=== PATIENT | male | born 1930 | race African-American/Black ===

== ENCOUNTER → 2016-08-15 | Outpatient (CLI) | payer OTHER ==
[~2016-08-15] MED LIST: ALLOPURINOL 10100 M1 PO; AMARYL4 MG PO; ASPIR 8181 MG PO; CEFTIN 250 MG250 MG PO; CELEXA10 MG PO; COLACE100 MG; COREG3.125 MG PO; HYDRALAZINE 2525 M1 PO; IMDUR 30 MG TAB30 M1 PO; IRON PO; IRON325 PO; LASIX 40 MG TAB40 M1 PO; LIPITOR20 MG PO; LYRICA25 MG PO; NORVASC5 MG PO; PRILOSEC20 MG PO; SYNTHROID50 MCG PO; TOPROL XL50 MG PO
== END ==
LOC: NUC 09:39
DX: I25.10 Atherosclerotic heart disease of native coronary artery without angina pectoris (principal)

== ENCOUNTER 2017-10-23 12:18 | Inpatient (IN) | payer OTHER ==
[~2017-10-23] VITALS: Ht 177.8 cm; Wt 86.2 kg
--- NOTE | ~2017-10-23 | HC ---
[facility] [place] [address] CONSULTATION Name: JENNY OTTO Room #: 354-P [facility] M.R.#: [id number] Admission: 10/23/17 Attend Phys: Shayne Bowles MD Discharge: Date of : 32 Report #: [id number] THIS REPORT FOR: //name// CC: Shayne Amaral REASON FOR CONSULTATION: Left distal radius fracture. HISTORY OF PRESENT ILLNESS: The patient is an 87-year-old right hand dominant male who apparently fell while in the bathroom at a restaurant. He apparently was walking over to wash his hands and then fell backwards. He then went home, complained of left wrist pain and he was brought to the emergency department. He denies loss of consciousness. REVIEW OF SYSTEMS: NEUROLOGIC: Denies numbness or tingling in his extremities. MUSCULOSKELETAL: Denies any other extremity complaints. PAST MEDICAL HISTORY: Significant for congestive heart failure, hyperkalemia, his reports a history of strokes, history of UTIs, hypothyroidism, hypertension, hyperlipidemia, chronic renal failure, and history of pacemaker. PAST SURGICAL HISTORY: Pacemaker placement, thyroidectomy, and appendectomy. ALLERGIES: LEVOFLOXACIN. HOME MEDICATIONS: Include omeprazole, glimepiride, levothyroxine, allopurinol, atorvastatin, citalopram, pregabalin, docusate sodium, aspirin, ferrous sulfate, isosorbide mononitrate, hydralazine, and torsemide. SOCIAL HISTORY: He is right hand dominate, uses a cane for ambulation. His significant other is at his bedside. She reports they live together in a house. He denies smoking or drinking alcohol. LABORATORY STUDIES: Done on 10/24/2017, show white blood cell count 12.7, hemoglobin 11.6, hematocrit 35.2, and platelet count 120. Chemistry is grossly normal except for an elevated creatinine at 2.9. RADIOGRAPHS: AP, lateral and oblique of the left wrist show a distal radius fracture with reasonable alignment. PHYSICAL EXAMINATION: GENERAL: He is awake. He is somewhat sleepy and his significant other reports he just received some pain medicine. He is oriented only to person. VITAL SIGNS: Most recent vital signs show temperature 37.9, heart rate 65, respiration rate 16, blood pressure 126/63, and pulse oximetry is 94% on room air. [address] [address] CONSULTATION Name: JENNY OTTO Room #: 354-P [facility] M.R.#: [id number] Admission: 10/23/17 Attend Phys: Shayne Bowles MD Discharge: Date of : 32 Report #: [id number] EXTREMITIES: Examination of bilateral lower extremities, he is neurovascularly intact. Brisk capillary refill. Sensation is intact to light touch. He wiggles his toes. There is no tenderness to palpation throughout the entire bilateral lower extremities. He has no pain with range of motion of bilateral hips, knees, ankles or feet. Right upper extremity exam, sensation is intact to light touch throughout. He makes a fist, full extension. Skin is clean, dry and intact. There is no pain with range of motion of the entire right upper extremity. Left upper extremity is in a sugar-tong splint. He has moderate amount of edema to his digits, he moves them slowly. However, he is neurovascularly intact. No pain with left shoulder range of motion. ASSESSMENT AND PLAN: Left distal radius fracture in acceptable alignment in a right hand dominant 87-year-old male, he is splinted in a sugar-tong splint. At this point, I would recommend that he follows up as an outpatient with me in my office and we will transition him into a cast. Questions were encouraged and answered to best of my ability. Please have the patient follow up in my office upon discharge. By: [id number] Ashlee Campos MD /nt
--- NOTE | ~2017-10-23 | EKG ---
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: CAROL : 1930 Requested By: Anjel Elmore Order Number: [id number] MD: Rj Lovelace Measurements Intervals [place] Rate: 65 P: 0 FL: 56 QRS: -81 QRSD: 186 T: 106 QT: 489 QTc: 509 Interpretive Statements Ventricular-paced rhythm No further analysis attempted due to paced rhythm Compared to ECG 07/24/2014 15:41:46 Sinus rhythm no longer present Electronically Signed On 10-23-2017 17:08:11 CDT by Rj Lovelace [email or web address] <ELECTRONICALLY SIGNED> By: Rj Lovelace MD, [facility] 10/23/17 1708 1315 1315 Rj Lovelace MD, [facility] /EPI
[2017-10-23 12:21] VITALS: BP 114/47
[2017-10-23] MEDS ORDERED: DEMADEX20 MG PO (12:41)
[2017-10-23 13:53] LABS: HEMATOCRIT 36.4 % (42.0-52.0); HEMOGLOBIN 11.9 gm/dL (14.0-18.0); MCH 30.8 pg (26.0-34.0); MCHC 32.6 g/dL (28.0-37.0); MCV 94.6 fL (80.0-100.0); RBC 3.85 mil/uL (4.50-6.00); RDW 16.1 % (10.5-14.5); WBC 7.6 thou/uL (4.0-11.0)
[2017-10-23 14:06] LABS: URINE BILIRUBIN NEGATIVE (Negative); URINE BLOOD NEGATIVE (Negative); URINE CLARITY CLEAR; URINE COLOR YELLOW; URINE GLUCOSE-RANDOM* NEGATIVE (Negative); URINE KETONES NEGATIVE (Negative); URINE LEUKOCYTES-REFLEX 1+ (Negative); URINE NITRITE-REFLEX POSITIVE (Negative); URINE PROTEIN (DIPSTICK) NEGATIVE (Negative); URINE UROBILINOGEN 0.2 E.U./dl (0.2-1.0)
[2017-10-23 14:16] LABS: BACTERIA-REFLEX >30 Many /HPF (None Seen); CASTS None Seen /LPF (None Seen); CRYSTALS None Seen /LPF (None Seen); SQUAMOUS None Seen /LPF (0-3); URINE RBC 0-2 Rare /HPF (0-2); URINE WBC-REFLEX 6-15 Few /HPF (0-5)
[2017-10-23 14:17] LABS: ABSOLUTE NEUTROPHILS 6.9 thou/uL (1.4-8.2); PLATELET COUNT 98 thou/uL (150-400)
[2017-10-23 14:18] LABS: LARGE PLATELETS RARE
[2017-10-23 14:34] LABS: CREATININE 3.3 mg/dL (0.7-1.3); POTASSIUM 5.5 mmol/L (3.5-5.1); TROPONIN-I 0.15 ng/mL (<0.06)
[2017-10-23 15:26] VITALS: BP 138/63
[2017-10-23 16:00] VITALS: BP 130/76
[2017-10-23 16:34] VITALS: BP 147/69
[2017-10-23 19:52] VITALS: BP 143/69
[2017-10-23 23:40] VITALS: BP 126/60
[2017-10-24 01:18] VITALS: BP 126/60
[2017-10-24 03:47] VITALS: BP 126/63
[2017-10-24 03:49] VITALS: BP 126/63
[2017-10-24 05:44] LABS: HEMATOCRIT 35.2 % (42.0-52.0); HEMOGLOBIN 11.6 gm/dL (14.0-18.0); MCH 30.7 pg (26.0-34.0); RBC 3.79 mil/uL (4.50-6.00); RDW 15.3 % (10.5-14.5); WBC 4.7 thou/uL (4.0-11.0)
[2017-10-24 05:54] LABS: CALCIUM 8.5 mg/dL (8.5-10.1); CREATININE 2.9 mg/dL (0.7-1.3); POTASSIUM 5.1 mmol/L (3.5-5.1)
[2017-10-24 07:59] VITALS: BP 120/54
[2017-10-24 16:04] VITALS: BP 142/74
[2017-10-24 19:24] VITALS: BP 148/70
[2017-10-25 04:00] VITALS: BP 121/64
[2017-10-25 05:52] LABS: CHOLESTEROL 99 mg/dL (<200); HDL CHOLESTEROL 55 mg/dL (>40); LDL CHOLESTEROL 36 mg/dL (<100); MAGNESIUM 2.1 mg/dL (1.8-2.4); TC:HDL 1.8 Ratio (Not establshd); TRIGLYCERIDE 42 mg/dL (<150); VLDL 8 mg/dL (<40)
[2017-10-25 05:55] LABS: SERUM ASSESSMENT Clear
[2017-10-25 08:08] VITALS: BP 134/63
[2017-10-25] MEDS ORDERED: VITAL-D RX TAB1 EACH PO (09:53)
[2017-10-25 16:31] VITALS: BP 108/56
== END 2017-10-25 16:45 | DRG 542 ==
LOC: ER 12:18 → 3W 14:39 → EROBS 14:39 → 3W 16:02
PROVIDERS: Emergency Medicine; Hospitalist; Nurse Practitioner Family
PROC: 2W3FX1Z Immobilization of Left Hand using Splint (ICD-10-PCS; principal; 2017-10-23)
DX: M80.032A Age-related osteoporosis with current pathological fracture, left forearm, initial encounter for fracture (principal); E43 Unspecified severe protein-calorie malnutrition; N39.0 Urinary tract infection, site not specified; N17.9 Acute kidney failure, unspecified; I13.0 Hypertensive heart and chronic kidney disease with heart failure and stage 1 through stage 4 chronic kidney disease, or unspecified chronic kidney disease; E03.9 Hypothyroidism, unspecified; E78.5 Hyperlipidemia, unspecified; I25.5 Ischemic cardiomyopathy; I25.10 Atherosclerotic heart disease of native coronary artery without angina pectoris; N18.9 Chronic kidney disease, unspecified; E87.5 Hyperkalemia; I50.9 Heart failure, unspecified; R27.0 Ataxia, unspecified; M48.061 Spinal stenosis, lumbar region without neurogenic claudication; E11.22 Type 2 diabetes mellitus with diabetic chronic kidney disease; D50.9 Iron deficiency anemia, unspecified; M62.84 Sarcopenia; Z86.73 Personal history of transient ischemic attack (TIA), and cerebral infarction without residual deficits; Z90.49 Acquired absence of other specified parts of digestive tract; Z95.5 Presence of coronary angioplasty implant and graft; Z95.0 Presence of cardiac pacemaker; Z88.1 Allergy status to other antibiotic agents; Z47.89 Encounter for other orthopedic aftercare; W18.39XA Other fall on same level, initial encounter; Y93.89 Activity, other specified; Y92.89 Other specified places as the place of occurrence of the external cause; Y99.8 Other external cause status; Z68.27 Body mass index [BMI] 27.0-27.9, adult
CPT/HCPCS: 10879

== ENCOUNTER → 2017-11-22 | Outpatient (CLI) | payer OTHER ==
[~2017-11-22] VITALS: Ht 175.3 cm; Wt 89.1 kg
[~2017-11-22] MED LIST changes: +DEMADEX20 MG PO; +HYDRALAZINE 2525 MG PO; +METAMUCIL SUGA283 GM PO; +MIRALAX17 GM PO; +PERCOCET PO; +TYLENOL EXTRA500 MG PO; +VITAL-D RX TAB1 EACH PO
--- NOTE | ~2017-11-22 | HPC ---
[facility] [address] [place] [address] PAIN MANAGEMENT CONSULTATION Name: CLARITAJENNY NAHOMI Room #: REG CLMiguel Carias.#: [id number] Admission: 11/22/17 Attend Phys: Nahomi Altamirano DO Discharge: Date of : 32 Report #: [id number] THIS REPORT FOR: //name// CC: Hakan Mishra DO DATE OF SERVICE: 11/22/2017 CHIEF COMPLAINT: Low back pain, bilateral lower extremity pain. HISTORY OF PRESENT ILLNESS: As you know, the patient is an 87-year-old male who recently sustained a fall that led to exacerbation of low back pain. During this fall, he fractured his wrist which is also causing ongoing pain issues. Apparently, he hit his head fairly hard and family feels that he may have suffered a small concussion. The patient has been evaluated by the [facility] and his primary care physician, Dr. Mishra, who sent the patient to our clinic to trial epidural injection to address lumbar radicular pain secondary to a suspected spinal stenosis. The patient indicates today pain is intermittent, describes the pain as throbbing, places current pain score 6/10, daily average at 6/10, worst pain has been is 8/10. The patient states that walking or any type of activity exacerbates symptoms. Heat and cold compresses, pain medications tend to improve pain. He has been referred to our service to discuss treatment options for lumbar radicular symptoms secondary to severe spinal stenosis of lumbar spine. PAST MEDICAL HISTORY: 1. Diabetes mellitus type 2. 2. Chronic anemia. 3. Hypertension. 4. Coronary artery disease. 5. Thyroid disease. 6. History of transient ischemic attacks and cerebrovascular accidents with possible residual deficits. PAST SURGICAL HISTORY: Appendectomy. SOCIAL HISTORY: The patient denies tobacco, alcohol, IV or illicit drug use. He is retired, retired years ago. He is not receiving workmen's compensation nor is trying to obtain disability benefits. He is accompanied by a family member today. ALLERGIES: LEVOFLOXACIN. CURRENT MEDICATIONS: Omeprazole 20 mg once a day, glimepiride 4 mg once a day, levothyroxine 50 mcg per day, allopurinol 100 mg once a day, atorvastatin [address] [address] PAIN MANAGEMENT CONSULTATION Name: JENNY OTTO Room #: REG [facility] M.R.#: [id number] Admission: 11/22/17 Attend Phys: Nahomi Altamirano DO Discharge: Date of : 32 Report #: [id number] once a day, citalopram 10 mg per day, isosorbide dinitrate 30 mg once a day, hydralazine 25 mg per day, docusate sodium 100 mg per day, aspirin 81 mg per day, ferrous sulfate 325 mg per day, albuterol 2 puffs q.4 hours p.r.n., torsemide 20 mg per day, oxycodone 5 mg every 8 hours p.r.n. for pain, Metamucil p.r.n., MiraLax 17 grams per day, Tylenol Extra Strength 500 mg 3 times a day, Lyrica 25 mg p.o. at bedtime, metolazone 2.5 mg once a day. REVIEW OF SYSTEMS: Positive for decrease in appetite, fatigue and weakness, wearing corrective eyewear, glaucoma, hearing loss with tinnitus, shortness of breath with walking or lying flat, urinary tract infections that are recurrent, nocturia, change of force or stream urination, incontinence and dribbling to urine, nervousness, confusion, memory loss, thyroid disease, non-insulin dependent diabetes, excessive thirst, urination, anemia. All other review of systems negative per 12-point review of systems other than those listed in history of present illness. Pain impact score 36/70 indicating moderate interference of daily activities secondary to pain. 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 No rheumatoid arthritis. Pain intensity is 6/10. He indicates pain is distributed equally down the legs. He is a fall risk. He has had a fall in the last 3 months. He is on no blood thinners. He is treated for hypertension. He has not been on opioids for greater than 6 weeks. He has a low opioid assessment risk for opioid abuse. Functional assessment pain impact 32/70. PHYSICAL EXAMINATION: VITAL SIGNS: Blood pressure 138/65, pulse 65, respiratory rate 16 and unlabored. The patient is 99% on room air. Height 5 feet 9 inch tall, weight 196 pounds, BMI calculated 29.0. GENERAL: Well-developed, well-nourished, well-hydrated 87-year-old male appearing his stated age, placing current pain score 6/10. HEENT: Normocephalic, atraumatic. Pupils equal, round, reactive to light. Arcus senilis noted. NEUROLOGIC: Speech is fluent for patient. He is oriented only to person and place. LUNGS: Clear. No wheeze, rhonchi or rales. CARDIOVASCULAR: Regular. No appreciable gallop or rub. ABDOMEN: Soft, nontender, nondistended. EXTREMITIES: Show no clubbing, no cyanosis. There is a cast on the left forearm, status post fracture. MUSCULOSKELETAL: Seated straight leg raising negative. Supine straight leg raising mildly positive. MARCELLUS test negative. Modified Gaenslen's positive for axial back pain. Ankle clonus negative. Babinski is negative. Gait is extremely antalgic. Stance is forward flexed lumbar spine, loss of lordotic [facility] [address] [place] [address] PAIN MANAGEMENT CONSULTATION Name: JENNY OTTO Room #: REG JASMYN Davison#: [id number] Admission: 11/22/17 Attend Phys: Nahomi Altamirano DO Discharge: Date of : 32 Report #: [id number] curvature. ASSESSMENT: 1. Lumbar radiculopathy. 2. Severe spinal stenosis of lumbar spine. 3. Displacement of lumbar intervertebral disk with radiculopathy. 4. Lumbosacral spondylosis with radiculopathy. 5. Facet arthropathy of the lumbar spine. 6. Lumbar degeneration. 7. Chronic intractable pain. PLAN: 1. The patient has been referred to our service by his physician, Dr. Mishra, for evaluation for possible lumbar radiculopathy. The patient sustained a fall recently, which exacerbated his low back symptoms. Nothing in the MRI would indicate any new changes. He has severe spinal stenosis and this is the likely source of the patient's pain given the bilateral nature of his symptoms. The patient and I had a long discussion today about the treatment options available for lumbar radiculopathy secondary to spinal stenosis. The following was discussed with the patient for treatment options: The patient was advised the treatments could include physical therapy, stretching exercise, core strengthening along with some traction techniques. We discussed adjunctive therapies with chiropractic manipulation, myofascial release and acupuncture therapy. We discussed medication management with neuropathic pain medications and low dose opioid for pain control, though I would recommend these to be used sparingly given his cognition issues present and him being such a high fall risk. We discussed the requested epidural injections under fluoroscopic guidance and surgical options. After reviewing risks and benefits of all proposed treatment options, the patient chose to begin with an epidural injection. The patient was advised that third democrat payer restrictions require that authorization be obtained before he could undergo an epidural injection. Authorization could take anywhere from 4-7 working days, will begin the process immediately, have the patient return to undergo the epidural injection once this authorization has been received. 2. We will have the patient back in followup visit once we have received authorization to undergo epidural injection under fluoroscopic guidance. We will set the appointment once the authorization has been achieved so that the patient can return immediately and have that injection done as quickly as possible to address ongoing pain issues. 3. We wish to thank Dr. Mishra and/or for the referral of the patient to our clinic. We will keep you apprised of his response to treatment as we address [address] [address] PAIN MANAGEMENT CONSULTATION Name: JENNY OTTO Room #: REG CLMiguel Davison#: [id number] Admission: 11/22/17 Attend Phys: Nahomi Altamirano DO Discharge: Date of : 32 Report #: [id number] his lumbar radicular symptoms. Again, we wish to thank you for the opportunity to see the patient in consultation. By: [id number] Nahomi Altamirano DO /nt
[2017-11-22 14:03] VITALS: BP 138/65
== END ==
LOC: PAIN 07:06
DX: M47.27 Other spondylosis with radiculopathy, lumbosacral region (principal); M51.16 Intervertebral disc disorders with radiculopathy, lumbar region; M48.061 Spinal stenosis, lumbar region without neurogenic claudication; G89.4 Chronic pain syndrome; M12.88 Other specific arthropathies, not elsewhere classified, other specified site

== ENCOUNTER 2018-02-06 15:52 | Observation (INO) | payer OTHER ==
[~2018-02-06] VITALS: Ht 175.3 cm; Wt 87.7 kg
--- NOTE | ~2018-02-06 | P ---
[facility] [place] [address] PROCEDURE REPORT Name: JENNY OTTO Room #: 201-P [facility] Chris Davison#: [id number] Admission: 02/06/18 Attend Phys: Pedro Morales MD Discharge: 02/07/18 Date of : 32 Report #: [id number] THIS REPORT FOR: //name// CC: Hakan Morales DATE OF SERVICE: 02/07/2018 PREOPERATIVE DIAGNOSIS: Pacemaker is at end of service. POSTOPERATIVE DIAGNOSIS: Pacemaker is at end of service. HISTORY: The patient is an 87-year-old with history of coronary artery disease, complete heart block, status post prior Medtronic pacemaker placed. The patient has been lost to follow up and has not been transmitting his device as scheduled. We were able to get a hold of him yesterday and his device was at end of service. He was admitted for monitoring in the CCU and is here for generator exchange today. Also, has chronic renal insufficiency. He had some hyperkalemia, which resolved with Kayexalate. He is here for generator exchange. ANESTHESIA: The patient underwent MAC anesthesia with no anesthesia related complications. DESCRIPTION OF PROCEDURE: The patient and his significant other underwent informed consent. We discussed the details of the procedure including the risks, which include but not limited to bleeding, infection and need for possible lead revisions. He and his significant other agreed and were willing to proceed. The patient was brought to the EP laboratory in a fasting and sedated state and prepped and draped in a sterile fashion. He received IV vancomycin given his chronic renal insufficiency and diabetes and was prepped and draped in a sterile fashion. I then injected lidocaine at the prior incision site. Incision was made and the pocket was entered. The device was removed from the pocket and he was found to have no underlying heart rhythm. We then connected the RV lead to the pacing wires and then transitioned over to the new pacemaker. The atrial and ventricular leads were connected to the new pacemaker, tested and found to be functioning normally. I did then place an antibiotic pouch into the pocket, given his high risk for infection given chronic renal insufficiency, diabetes and recurrent urinary tract infections. He was given an MRI compatible pacemaker given his history of severe spinal stenosis and neurologic disease in the form of advancing dementia. The pocket was irrigated with vancomycin and I closed the pocket in 2 layers using 2-0 for the deep layer and 3-0 for the middle layer. Surgical glue was placed to the outer skin layer. The patient awoke neurologically and hemodynamically intact, no complications and no [address] [address] PROCEDURE REPORT Name: JENNY OTTO Room #: 201-P [facility] Chris Davison#: [id number] Admission: 02/06/18 Attend Phys: Pedro Morales MD Discharge: 02/07/18 Date of : 32 Report #: [id number] significant bleeding. The explanted pacemaker was a [employer] serial #[id number] with a product #[id number]. This was originally implanted on 04/28/2008. The newly implanted pacemaker was Medtronic model #W3DR01, serial #[id number]. The leads were originally implanted on 04/28/2008. The atrial lead was a model #5076, serial #[id number] with a P-wave of 1.6 millivolts, pacing impedance of 399 ohms and a pacing threshold of 0.5 volts at 0.4 milliseconds. The RV lead was a Medtronic model #5076, serial #[id number] with no underlying R waves, pacing impedance of 494 ohms and a pacing threshold of 1 volt at 0.4 milliseconds. The device was programmed to the DDDR 60-130 mode. CONCLUSIONS: 1. Successful dual-chamber pacemaker implantation. 2. Satisfactory atrial and ventricular pacing and sensing thresholds. 3. Implantation of a TYRX antibiotic pouch. By: [id number] Pedro Morales MD /nt
--- NOTE | ~2018-02-06 | D ---
[facility] [place] [address] DISCHARGE SUMMARY Name: JENNY OTTO Room #: 201-P [facility] Chris Davison#: [id number] Admission: 02/06/18 Attend Phys: Pedro Morales MD Discharge: Date of : 32 Report #: [id number] THIS REPORT FOR: //name// CC: Hakan Morales DATE OF SERVICE: 02/07/2018 DISCHARGE DIAGNOSES: 1. Pacemaker at end of service with high risk of battery failure. 2. Complete heart block. 3. Coronary artery disease. 4. Ischemic cardiomyopathy. 5. Diastolic heart failure, chronic in nature. 6. Chronic renal insufficiency. 7. Hyperkalemia. 8. Diabetes mellitus. 9. Chronic urinary tract infections. HISTORY: The patient is an 87-year-old who was admitted because his battery was at end of service. He had not been following up with routine remote transmissions. We were able to get hold of him yesterday and his device was noted to be at end of service. Given that he is a complete heart block, I recommended that he be admitted for monitoring in the CCU. Laboratories revealed that he was hyperkalemic with no real EKG changes. A renal consult was obtained. I did give the patient a dose of Kayexalate and his potassium was improved. He was not really on anything to cause hyperkalemia. As such on 02/07/2018, he underwent successful pacemaker generator exchange and an antibiotic pouch was placed. He had no procedural complications. HOSPITAL COURSE: Post-generator exchange. The patient was deemed stable for discharge home. Discharge instructions were reviewed with the patient and the caregiver. He will follow up in the device clinic on 02/15/2018 at 01:30 for incision check. He is already on a course of antibiotics for suppression of recurrent urinary tract infections. The patient was deemed stable for discharge home and we will follow up as outlined above. By: 1051 1304 Pedro Morales MD /nt
--- NOTE | ~2018-02-06 | HC ---
[facility] [address] CONSULTATION Name: JENNY OTTO Room #: 201-P [facility] Chris Davison#: [id number] Admission: 02/06/18 Attend Phys: Pedro Morales MD Discharge: 02/07/18 Date of : 32 Report #: [id number] THIS REPORT FOR: //name// CC: Hakan Morales DATE OF SERVICE: 02/06/2018 Nephrology Consultation ATTENDING PHYSICIAN: Pedro Morales MD REASON FOR CONSULTATION: Chronic kidney disease. HISTORY OF PRESENT ILLNESS: The patient is extremely well known to our service, followed in our office by Dr. Paris with longstanding chronic kidney disease and baseline serum creatinine that runs in the range of 2.5. He has had some degree of progressive dementia. His long-term partner stays with him and watches over him. He has had longstanding hypertension. He has a longstanding pacemaker placement and is admitted for generator change. PAST MEDICAL HISTORY: Coronary artery disease, previous left anterior descending coronary stent placement. He has remote CVA with some progressive dementia. He has pacemaker in place. He has also had bilateral carotid disease and previous appendectomy and tonsillectomy. HOME MEDICATIONS: List includes allopurinol 100 mg daily, aspirin 81 mg daily, Lipitor 20 mg daily, Celexa 10 mg daily, iron, Amaryl 4 mg daily, hydralazine 25 mg t.i.d., Imdur 30 mg daily, Synthroid 50 mcg daily, Prilosec 20 mg daily, MiraLax p.r.n., Lyrica 25 mg daily, torsemide 20 mg b.i.d. FAMILY HISTORY: Please see old charts. 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 No substantial cigarettes or alcohol. REVIEW OF SYSTEMS: GENERAL: He has actually been feeling reasonably well. He fell and fractured his left wrist earlier this summer, has been a little more sluggish getting around with a walker. EYES: His vision is okay. ENT: Hearing okay, swallows okay. No mouth sores. ENDOCRINE: Positive for the hypothyroidism and diabetes. RESPIRATORY: Denies shortness of breath, pleuritic pain. CARDIAC: No chest pain or palpitations. [facility] [address] [place] [address] CONSULTATION Name: JENNY OTTO Room #: 201-P [facility] Chris Davison#: [id number] Admission: 02/06/18 Attend Phys: Pedro Morales MD Discharge: 02/07/18 Date of : 32 Report #: [id number] GASTROINTESTINAL: No nausea, vomiting, diarrhea or bloody stools. GENITOURINARY: Reasonably good stream. No dysuria. NEUROLOGIC: Slowly progressive dementia. PHYSICAL EXAMINATION: GENERAL: This is a somewhat chronically ill appearing patient. He is sitting up in a chair. SKIN: Unremarkable. SKELETAL: Well developed, well-nourished, left wrist is a little bit swollen. HEENT: Extraocular movements full. Vision intact. Hearing intact. Mucous membranes moist. NECK: Supple. CHEST: Clear to auscultation. HEART: Regular. ABDOMEN: Soft, nontender. EXTREMITIES: Show 3+ peripheral edema. LABORATORY DATA: Sodium 136, potassium 5.7, chloride 104, bicarbonate 25, creatinine 2.7, BUN 75. ASSESSMENT AND PLAN: 1. Chronic kidney disease. Creatinine more or less at baseline 2. Hyperkalemia. Potassium is up just a touch. I will look into what treatment has been given. Certainly does not need any emergency type treatments, possibly some Kayexalate for his mildly elevated number though the torsemide might take care of it as well. 3. Longstanding hypertension. 4. Pacemaker with need for generator change. 5. Recent left wrist fracture. 6. Ischemic cardiomyopathy with decreased ejection fraction. 7. Diabetes mellitus. <ELECTRONICALLY SIGNED> By: Dimitri Bedoya MD 02/08/18 1109 [id number] [id number] Dimitri Bedoya MD /nt
[2018-02-06 16:46] LABS: HEMATOCRIT 38.2 % (42.0-52.0); HEMOGLOBIN 12.4 gm/dL (14.0-18.0); MCH 31.4 pg (26.0-34.0); MCHC 32.3 g/dL (28.0-37.0); MCV 97.1 fL (80.0-100.0); RBC 3.94 mil/uL (4.50-6.00); RDW 16.4 % (10.5-14.5); WBC 4.1 thou/uL (4.0-11.0)
[2018-02-06 16:59] LABS: ALBUMIN 3.5 g/dL (3.4-5.0); CREATININE 2.7 mg/dL (0.7-1.3); INR 1.1; POTASSIUM 5.7 mmol/L (3.5-5.1); PROTIME 11.2 Seconds (9.3-11.4); TOTAL BILIRUBIN 0.5 mg/dL (<0.1-1.0); TOTAL PROTEIN 7.5 g/dL (6.4-8.2)
[2018-02-06 17:00] VITALS: BP 139/70
[2018-02-06 19:04] VITALS: BP 136/67
[2018-02-07] VITALS (8 sets, daily range): BP systolic 127–151; BP diastolic 63–71
[2018-02-07 03:48] LABS: ALBUMIN 3.2 g/dL (3.4-5.0); CALCIUM 8.5 mg/dL (8.5-10.1); CREATININE 2.5 mg/dL (0.7-1.3); POTASSIUM 4.9 mmol/L (3.5-5.1)
== END 2018-02-07 14:46 | disposition home or self-care (01) ==
LOC: 2N 15:52 → ENTRNSPT 02-07 14:37 → EDTRNSPTSTS 02-07 14:40 → 2N 02-07 14:46
PROVIDERS: Internal Medicine Nephrology; Nurse Practitioner Gerontology
DX: I25.10 Atherosclerotic heart disease of native coronary artery without angina pectoris (principal); I44.2 Atrioventricular block, complete; I13.0 Hypertensive heart and chronic kidney disease with heart failure and stage 1 through stage 4 chronic kidney disease, or unspecified chronic kidney disease; E11.22 Type 2 diabetes mellitus with diabetic chronic kidney disease; E11.51 Type 2 diabetes mellitus with diabetic peripheral angiopathy without gangrene; N18.4 Chronic kidney disease, stage 4 (severe); I50.32 Chronic diastolic (congestive) heart failure; I65.29 Occlusion and stenosis of unspecified carotid artery; E78.00 Pure hypercholesterolemia, unspecified; Z95.0 Presence of cardiac pacemaker; K21.9 Gastro-esophageal reflux disease without esophagitis; E87.5 Hyperkalemia; I25.5 Ischemic cardiomyopathy; N39.0 Urinary tract infection, site not specified; Z45.010 Encounter for checking and testing of cardiac pacemaker pulse generator [battery]; Z95.5 Presence of coronary angioplasty implant and graft; Z79.82 Long term (current) use of aspirin; Z79.899 Other long term (current) drug therapy; Z90.49 Acquired absence of other specified parts of digestive tract
CPT/HCPCS: 10081; 62110; 62900; 70005

== ENCOUNTER 2018-02-08 20:17 | Inpatient (IN) | payer OTHER ==
[~2018-02-08] VITALS: Ht 175.3 cm; Wt 107.5 kg
--- NOTE | ~2018-02-08 | 2DMMODE ---
[facility] [place] [address] 2 D/M-MODE ECHOCARDIOGRAM Name: CLARITAJENNY NAHOMI Room #: 219-P ADM IN M.R.#: [id number] Admission: 02/09/18 Attend Phys: Nitish Maxwell Discharge: Date of : 34 Date of Service: 02/09/18 0946 Report #: [id number] THIS REPORT FOR: //name// APPROVED REPORT Study performed: 02/09/2018 08:55:40 EXAM: Comprehensive 2D, Doppler, and color-flow Echocardiogram Patient Location: Echo lab Room #: 219 Status: routine BSA: 2.03 HR: 76 bpm BP: 141/68 mmHg Rhythm: Pacemaker Other Information Study Quality: Good Indications Fatigue, short of breath, diastolic heart failure, recent pacemaker Gen change. Hx: CAD, stents, pacemaker, HTN, DM, CVA. 2D Dimensions RVDd: 41.90 mm IVSd: 15.46 (7-11mm) LVOT Diam: 21.23 (18-24mm) LVDd: 54.02 mm PWd: 13.41 (7-11mm) Ascending Ao: 34.80 (22-36mm) LVDs: 41.76 (25-40mm) Aortic Root: 35.82 mm Volumes Left Atrial Volume (Systole) Single Plane 4CH: 93.59 mL Single Plane 2CH: 87.63 mL LA ESV Index: 49.00 mL/m2 Aortic Valve AoV Peak George.: 2.13 m/s AO Peak Gr.: 18.09 mmHg LVOT Max P.72 mmHg AO Mean Gr.: 8.98 mmHg AO V2 Mean: 1.39 m/s LVOT Max V: 0.96 m/s AO V2 VTI: 38.01 cm LAVON Vmax: 1.61 cm2 AI Vmax: 3.80 m/s AI [place]: 2.46 m/s2 [facility] [place] [address] 2 D/M-MODE ECHOCARDIOGRAM Name: JENNY OTTO Room #: 219-P [facility] IN M.R.#: [id number] Admission: 02/09/18 Attend Phys: Nitish Maxwell Discharge: Date of : 34 Date of Service: 02/09/18 0946 Report #: [id number] AI PHT: 447.57 ms Mitral Valve E/A Ratio: 1.5 MV Decel. Time: 223.93 ms MV E Max George.: 0.75 m/s MV A George.: 0.50 m/s MV PHT: 64.94 ms IVRT: 76.12 ms Pulmonary Valve PV Peak George.: 0.63 m/s PV Peak Gr.: 1.59 mmHg Tricuspid Valve TR Peak George.: 3.50 m/s RAP Estimate: 15.00 mmHg TR Peak Gr.: 49.13 mmHg PA Pressure: 64.00 mmHg Left Ventricle The left ventricle is normal size. Globak hypokinesis Mild concentric left ventricular hypertrophy. Left ventricular systolic function is moderately decreased. LVEF is 35-40%. Moderate diastolic dysfunction is present (pseudonormal filling). Right Ventricle Right ventricle is at the upper limits of normal. Right ventricle is mildly hypokinetic. Pacemaker lead is present in the right ventricle. Atria Left atrium is severely dilated. Right atrium is moderately dilated. Aortic Valve Aortic valve is moderately calcified. Moderate aortic regurgitation. Mild aortic stenosis. Aortic valve area by continuity equation is 1.6cm2. Mitral Valve Mitral valve leaflets are mildly thickened. Mild mitral regurgitation. Tricuspid Valve The tricuspid valve is normal in structure. Moderate tricuspid regurgitation. Estimated PAP is 60-65mmHg. Pulmonic Valve [facility] [address] [place] [address] 2 D/M-MODE ECHOCARDIOGRAM Name: JENNY OTTO Room #: 219-P [facility] IN .R.#: [id number] Admission: 02/09/18 Attend Phys: Nitish Maxwell Discharge: Date of : 32 Date of Service: 02/09/18 0946 Report #: [id number] The pulmonary valve is normal in structure. Trace pulmonic regurgitation. Great Vessels The aortic root is normal in size. The ascending aorta is normal in size. IVC is dilated and collapses <50% with inspiration. Pericardium Small pericardial effusion noted. <Conclusion> The left ventricle is normal size. LVEF is 35-40%. Globak hypokinesis Right ventricle is at the upper limits of normal. Pacemaker lead is present in the right ventricle. Left atrium is severely dilated. Right atrium is moderately dilated. Aortic valve is moderately calcified. Moderate aortic regurgitation. Mild aortic stenosis. Aortic valve area by continuity equation is 1.6cm2. Mitral valve leaflets are mildly thickened. Mild mitral regurgitation. The tricuspid valve is normal in structure. Moderate tricuspid regurgitation. Estimated PAP is 60-65mmHg. The pulmonary valve is normal in structure. Trace pulmonic regurgitation. Small pericardial effusion noted. <ELECTRONICALLY SIGNED> By: Harshil Westbrook MD 02/09/18945 5 5 Harshil Westbrook MD /INF
--- NOTE | ~2018-02-08 | EKG ---
[place] [address] [facility] [place] [address] ELECTROCARDIOGRAM REPORT Name: CLARITAJENNY NAHOMI Room #: 219-P ADM IN M.R.#: [id number] Admission: 02/09/18 Attend Phys: Nitish Ortiz Discharge: Date of : 32 Report #: [id number] THIS REPORT FOR: //name// [facility] ED Test Date: 2018-02-08 Test Time: 20:36:28 Pat Name: JENNY OTTO Department: Room: 219 Gender: M Fiscal Agent: CAROL : 1930 Requested By: Mary Cole Order Number: [id number] MD: Rj Lovelace Measurements Intervals [place] Rate: 77 P: 5 MD: 204 QRS: -75 QRSD: 176 T: 111 QT: 453 QTc: 513 Interpretive Statements Atrial-sensed ventricular-paced rhythm No further analysis attempted due to paced rhythm Compared to ECG 10/23/2017 13:15:49 No significant changes Electronically Signed On 02-09-2018 8:58:48 CDT by Rj Lovelace [email or web address] <ELECTRONICALLY SIGNED> By: Rj Lovelace MD, [facility] 02/09/18 0858 35 35 Rj Lovelace MD, [facility] /EPI
--- NOTE | ~2018-02-08 | HC ---
[facility] [place] [address] CONSULTATION Name: JENNY OTTO Room #: 219-P ADM IN M.R.#: [id number] Admission: 02/09/18 Attend Phys: Nitish Ortiz Discharge: Date of : 32 Report #: [id number] THIS REPORT FOR: //name// CC: TWILA physician/PCP Nitish Ortiz DATE OF SERVICE: 02/09/2018 INDICATION: Weakness. HISTORY OF PRESENT ILLNESS: This is an 87-year-old gentleman presenting with weakness, dyspnea and fatigue. He was just hospitalized 2 days ago for pacemaker generator change by Dr. Morales. The procedure was uneventful. When he went home, he was unsteady with standing and shaking quite a bit. He denies any specific complaints of angina, diaphoresis, lightheadedness or congestion. However, he did note increasing dyspnea with mild exertion. In the ER, he was noted to have a minimal elevation in his troponin level. The ECG reveals a paced rhythm. His BNP is elevated. 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 History of congestive heart failure, acute on chronic diastolic. History of coronary artery disease with stent placement in 2006. Nuclear stress test in 08/2016 revealed basal inferior infarct, with moderate LV dysfunction. History of chronic renal insufficiency. History of anemia. History of hypertension, edema. History of gait instability, uses a cane for assistance with ambulation. ALLERGIES: BETA BLOCKERS including TOPROL and COREG, the patient is intolerant. MEDICATIONS: Include aspirin once a day, Lipitor 20 mg daily, glimepiride, hydralazine 50 mg 3 times a day, isosorbide, omeprazole, torsemide 40 mg b.i.d. SOCIAL HISTORY: Denies tobacco use. FAMILY HISTORY: Negative for premature CAD. REVIEW OF SYSTEMS: A full 10-point review of systems performed. Only the pertinent positives and negatives described in the HPI. PHYSICAL EXAMINATION: VITAL SIGNS: Blood pressure is 140/68, heart rate is 80 beats per minute. GENERAL APPEARANCE: An elderly-appearing male in no acute distress. HEENT: Normocephalic, atraumatic. Oral mucosa moist. NECK: Supple. LUNGS: Diminished breath sounds at the bases. CARDIAC: RRR. S1, S2 positive. [address] [address] CONSULTATION Name: JENNY OTTO Room #: 219-P [facility] IN M.R.#: [id number] Admission: 02/09/18 Attend Phys: Nitish Ortiz Discharge: Date of : 32 Report #: [id number] ABDOMEN: Soft, nontender. EXTREMITIES: No cyanosis, no edema. ECG reveals an atrial sensed, ventricular paced rhythm. LABORATORY VALUES: Hemoglobin is 12.3. Troponin is 0.65. White count is 7.8. A chest x-ray reveals cardiomegaly and vascular congestion. ASSESSMENT AND PLAN: 1. Dyspnea attributed to [id number] mixed heart failure, not overly congested. However, he does feel symptomatic. We will proceed with gentle diuresis. 2. Coronary artery disease, history of stent placement, minimal troponin elevation of unclear etiology. He is not experiencing any chest pains, doubt this is an ischemic event. It may be related to oxygen mismatch from heart failure. Continue with aspirin therapy. 3. Arteriovenous block, status post generator change, stable rhythm on telemetry. Has a slight hematoma at the pacemaker site. We will follow for now. 4. Hypertension, continue with medications. 5. Chronic renal insufficiency, follow creatinine levels. 6. General debility, may need physical therapy. <ELECTRONICALLY SIGNED> By: Keshav Monson MD 02/10/18 0758 [phone] Keshav Monson MD /nt
[2018-02-08 20:27] VITALS: BP 146/71
[2018-02-08 22:18] LABS: ABSOLUTE NEUTROPHILS 7.1 thou/uL (1.4-8.2); BASOPHILS 0.1 % (0.0-2.0); EOSINOPHILS 0.1 % (0.0-3.0); HEMATOCRIT 38.1 % (42.0-52.0); HEMOGLOBIN 12.6 gm/dL (14.0-18.0); LYMPHOCYTES 1.9 % (24.0-44.0); MCH 31.8 pg (26.0-34.0); MCHC 33.1 g/dL (28.0-37.0); MONOCYTES 6.9 % (1.0-8.0); PLATELET COUNT 133 thou/uL (150-400); RBC 3.97 mil/uL (4.50-6.00); RDW 16.7 % (10.5-14.5); WBC 7.8 thou/uL (4.0-11.0)
[2018-02-08 22:27] LABS: CALCIUM 9.5 mg/dL (8.5-10.1); CREATININE 2.9 mg/dL (0.7-1.3); POTASSIUM 5.5 mmol/L (3.5-5.1)
[2018-02-08 22:38] LABS: TROPONIN-I 0.69 ng/mL (<0.06)
[2018-02-09] VITALS (9 sets, daily range): BP systolic 119–156; BP diastolic 54–82
[2018-02-09 06:18] LABS: HEMATOCRIT 38.4 % (42.0-52.0); HEMOGLOBIN 12.3 gm/dL (14.0-18.0)
[2018-02-09 09:16] LABS: URINE BILIRUBIN NEGATIVE (Negative); URINE BLOOD 1+ (Negative); URINE CLARITY CLEAR; URINE COLOR YELLOW; URINE GLUCOSE-RANDOM* NEGATIVE (Negative); URINE KETONES NEGATIVE (Negative); URINE LEUKOCYTES-REFLEX NEGATIVE (Negative); URINE NITRITE-REFLEX NEGATIVE (Negative); URINE PROTEIN (DIPSTICK) 2+ (Negative); URINE SPECIFIC GRAVITY 1.025 (1.005-1.035); URINE UROBILINOGEN 0.2 E.U./dl (0.2-1.0)
[2018-02-09 09:35] LABS: SQUAMOUS 0-3 Few /LPF (0-3)
[2018-02-09 09:37] LABS: BACTERIA-REFLEX 1-9 Few /HPF (None Seen); CRYSTALS None Seen /LPF (None Seen); HYALINE CASTS 0-3 Few /LPF (None Seen); MUCUS 0-3 Light strn/LPF (None Seen); URINE RBC 3-10 Few /HPF (0-2); URINE WBC-REFLEX 0-5 Rare /HPF (0-5)
[2018-02-10 04:45] VITALS: BP 149/73
[2018-02-10 07:24] VITALS: BP 144/78
[2018-02-10 10:20] LABS: CALCIUM 9.3 mg/dL (8.5-10.1); CREATININE 3.4 mg/dL (0.7-1.3); POTASSIUM 5.2 mmol/L (3.5-5.1)
[2018-02-10 11:26] VITALS: BP 138/64
[2018-02-10 15:24] VITALS: BP 144/81
[2018-02-10 19:58] VITALS: BP 127/69
[2018-02-11 04:00] LABS: ALBUMIN 2.8 g/dL (3.4-5.0); CALCIUM 8.5 mg/dL (8.5-10.1); CREATININE 3.2 mg/dL (0.7-1.3); PHOSPHORUS 4.8 mg/dL (2.5-4.9); POTASSIUM 4.6 mmol/L (3.5-5.1)
[2018-02-11 04:45] VITALS: BP 138/68
[2018-02-11 07:03] VITALS: BP 120/62
[2018-02-11 10:15] VITALS: BP 111/55
[2018-02-11 13:37] LABS: CALCIUM 8.1 mg/dL (8.5-10.1); CREATININE 3.3 mg/dL (0.7-1.3); POTASSIUM 4.7 mmol/L (3.5-5.1)
[2018-02-11 15:18] VITALS: BP 126/64
[2018-02-11 20:12] VITALS: BP 110/60
[2018-02-12 04:52] VITALS: BP 114/54
[2018-02-12 05:20] LABS: HEMATOCRIT 34.2 % (42.0-52.0); MCH 30.5 pg (26.0-34.0); MCV 95.4 fL (80.0-100.0); RBC 3.59 mil/uL (4.50-6.00); RDW 16.2 % (10.5-14.5); WBC 6.1 thou/uL (4.0-11.0)
[2018-02-12 05:30] LABS: ALBUMIN 2.5 g/dL (3.4-5.0); CALCIUM 8.1 mg/dL (8.5-10.1); CREATININE 3.1 mg/dL (0.7-1.3); PHOSPHORUS 3.9 mg/dL (2.5-4.9); POTASSIUM 4.3 mmol/L (3.5-5.1)
[2018-02-12] MEDS ORDERED: KEFLEX500 M1 PO (08:41)
[2018-02-12] MEDS ORDERED: FLOMAX0.4 MG PO (08:41)
[2018-02-12] MEDS ORDERED: CALCIUM 500 +1 EAC5 PO (08:42)
[2018-02-12] MEDS ORDERED: DEMADEX20 MG PO (08:42)
[2018-02-12] MEDS ORDERED: NOVOLOG100 UNIT/1 SUBQ (08:43)
[2018-02-12 12:46] VITALS: BP 125/55
[2018-02-12 15:08] VITALS: BP 140/67
[2018-02-12 19:00] VITALS: BP 124/67
[2018-02-13 03:46] VITALS: BP 132/68
[2018-02-13 04:52] LABS: CALCIUM 7.9 mg/dL (8.5-10.1); CREATININE 2.6 mg/dL (0.7-1.3); POTASSIUM 4.3 mmol/L (3.5-5.1)
[2018-02-13 07:33] VITALS: BP 112/55
[2018-02-13 16:03] VITALS: BP 130/48
[2018-02-13 19:45] VITALS: BP 118/55
[2018-02-14 04:53] VITALS: BP 131/55
[2018-02-14 08:15] LABS: CALCIUM 8.5 mg/dL (8.5-10.1); CREATININE 2.4 mg/dL (0.7-1.3); POTASSIUM 4.7 mmol/L (3.5-5.1)
[2018-02-14 08:39] VITALS: BP 119/60
[2018-02-14 09:45] VITALS: BP 119/60
== END 2018-02-14 11:25 | DRG 291 ==
LOC: ER 20:17 → 2N 02-09 00:05 → EROBS 02-09 00:05 → 2N 02-09 01:26
PROVIDERS: Emergency Medicine; Hospitalist; Internal Medicine Cardiovascular Disease; Nurse Practitioner Acute Care; Psychiatry & Neurology Neurology
DX: I13.0 Hypertensive heart and chronic kidney disease with heart failure and stage 1 through stage 4 chronic kidney disease, or unspecified chronic kidney disease (principal); I50.33 Acute on chronic diastolic (congestive) heart failure; E43 Unspecified severe protein-calorie malnutrition; N18.4 Chronic kidney disease, stage 4 (severe); D50.9 Iron deficiency anemia, unspecified; K21.9 Gastro-esophageal reflux disease without esophagitis; S20.219A Contusion of unspecified front wall of thorax, initial encounter; M81.0 Age-related osteoporosis without current pathological fracture; X58.XXXA Exposure to other specified factors, initial encounter; I08.3 Combined rheumatic disorders of mitral, aortic and tricuspid valves; E11.22 Type 2 diabetes mellitus with diabetic chronic kidney disease; M62.84 Sarcopenia; N40.1 Benign prostatic hyperplasia with lower urinary tract symptoms; R33.8 Other retention of urine; I25.10 Atherosclerotic heart disease of native coronary artery without angina pectoris; E03.9 Hypothyroidism, unspecified; Z86.73 Personal history of transient ischemic attack (TIA), and cerebral infarction without residual deficits; Z95.5 Presence of coronary angioplasty implant and graft; Z95.0 Presence of cardiac pacemaker; Z90.49 Acquired absence of other specified parts of digestive tract; Z88.1 Allergy status to other antibiotic agents; Z87.440 Personal history of urinary (tract) infections; Z79.82 Long term (current) use of aspirin; Z79.84 Long term (current) use of oral hypoglycemic drugs; Y93.89 Activity, other specified; Y92.89 Other specified places as the place of occurrence of the external cause; Y99.8 Other external cause status
CPT/HCPCS: 10081

== ENCOUNTER 2018-03-08 15:44 | Emergency (ER) | payer OTHER ==
[~2018-03-08] VITALS: Ht 175.3 cm; Wt 88.5 kg
[~2018-03-08 15:44] MED LIST changes: +CALCIUM 500 +1 EAC5 PO; +FLOMAX0.4 MG PO; +KEFLEX500 M1 PO; +NOVOLOG100 UNIT/1 SUBQ
[2018-03-08 17:29] LABS: ABSOLUTE NEUTROPHILS 4.6 thou/uL (1.4-8.2); EOSINOPHILS 0.6 % (0.0-3.0); HEMATOCRIT 32.4 % (42.0-52.0); HEMOGLOBIN 10.2 gm/dL (14.0-18.0); LYMPHOCYTES 4.1 % (24.0-44.0); MCH 29.6 pg (26.0-34.0); MCHC 31.6 g/dL (28.0-37.0); MCV 93.7 fL (80.0-100.0); PLATELET COUNT 187 thou/uL (150-400); POLYS 87.3 % (36.0-66.0); RBC 3.46 mil/uL (4.50-6.00); RDW 17.3 % (10.5-14.5); WBC 5.3 thou/uL (4.0-11.0)
[2018-03-08 17:38] LABS: CREATININE 2.5 mg/dL (0.7-1.3); POTASSIUM 4.4 mmol/L (3.5-5.1)
[2018-03-08 17:42] LABS: TOTAL BILIRUBIN 0.7 mg/dL (<0.1-1.0); TOTAL PROTEIN 7.1 g/dL (6.4-8.2)
[2018-03-08 17:43] LABS: APTT 20.8 Seconds (24.5-32.8); INR 1.1; PROTIME 11.5 Seconds (9.3-11.4)
[2018-03-08 19:10] LABS: URINE BILIRUBIN NEGATIVE (Negative); URINE BLOOD 1+ (Negative); URINE CLARITY CLEAR; URINE COLOR YELLOW; URINE GLUCOSE-RANDOM* NEGATIVE (Negative); URINE KETONES NEGATIVE (Negative); URINE LEUKOCYTES 3+ (Negative); URINE NITRITE NEGATIVE (Negative); URINE PROTEIN (DIPSTICK) NEGATIVE (Negative); URINE SPECIFIC GRAVITY <= 1.005 (1.005-1.035); URINE UROBILINOGEN 0.2 E.U./dl (0.2-1.0)
[2018-03-08 19:25] LABS: BACTERIA None Seen /HPF (None Seen); CASTS None Seen /LPF (None Seen); CRYSTALS None Seen /LPF (None Seen); SQUAMOUS 0-3 Few /LPF (0-3); URINE RBC 3-10 Few /HPF (0-2)
[2018-03-08] MEDS ORDERED: MACROBID 100 M100 M2 PO (19:47)
[2018-03-08] MEDS ORDERED: BACITRACIN28.4 G1 TOP (19:47)
[2018-03-08 20:14] VITALS: BP 121/60
== END 2018-03-08 20:15 | disposition home or self-care (01) ==
LOC: ER 15:44
PROVIDERS: Physician Assistant
DX: T83.098A Other mechanical complication of other urinary catheter, initial encounter (principal); I13.0 Hypertensive heart and chronic kidney disease with heart failure and stage 1 through stage 4 chronic kidney disease, or unspecified chronic kidney disease; N18.3 Chronic kidney disease, stage 3 (moderate); D64.9 Anemia, unspecified; R31.9 Hematuria, unspecified; E11.22 Type 2 diabetes mellitus with diabetic chronic kidney disease; I50.40 Unspecified combined systolic (congestive) and diastolic (congestive) heart failure; I25.10 Atherosclerotic heart disease of native coronary artery without angina pectoris; M48.00 Spinal stenosis, site unspecified; K21.9 Gastro-esophageal reflux disease without esophagitis; E78.5 Hyperlipidemia, unspecified; Z88.1 Allergy status to other antibiotic agents; Z90.49 Acquired absence of other specified parts of digestive tract; Z95.0 Presence of cardiac pacemaker; Z90.89 Acquired absence of other organs; Z86.73 Personal history of transient ischemic attack (TIA), and cerebral infarction without residual deficits; Z79.4 Long term (current) use of insulin

== ENCOUNTER 2019-06-10 15:47 | Inpatient (IN) | payer OTHER ==
[~2019-06-10] VITALS: Ht 175.3 cm; Wt 90.4 kg
[~2019-06-10 15:47] MED LIST changes: +BACITRACIN28.4 G1 TOP; +MACROBID 100 M100 M2 PO
[2019-06-10 15:48] VITALS: BP 118/66
[2019-06-10 17:30] LABS: HEMATOCRIT 37.1 % (42.0-52.0); HEMOGLOBIN 11.8 gm/dL (14.0-18.0); MCH 29.6 pg (26.0-34.0); MCHC 31.8 g/dL (28.0-37.0); RBC 3.99 mil/uL (4.50-6.00); RDW 17.9 % (10.5-14.5); WBC 4.5 thou/uL (4.0-11.0)
[2019-06-10 17:39] LABS: URINE BILIRUBIN NEGATIVE (Negative); URINE BLOOD 1+ (Negative); URINE CLARITY CLEAR; URINE COLOR YELLOW; URINE GLUCOSE-RANDOM* NEGATIVE (Negative); URINE KETONES NEGATIVE (Negative); URINE NITRITE-REFLEX NEGATIVE (Negative); URINE PROTEIN (DIPSTICK) TRACE (Negative)
[2019-06-10 17:40] LABS: URINE LEUKOCYTES-REFLEX 2+ (Negative)
[2019-06-10 17:41] LABS: CALCIUM 8.9 mg/dL (8.5-10.1); CREATININE 2.8 mg/dL (0.7-1.3)
[2019-06-10 17:49] LABS: BACTERIA-REFLEX >30 Many /HPF (None Seen); CASTS None Seen /LPF (None Seen); CRYSTALS None Seen /LPF (None Seen); SQUAMOUS None Seen /LPF (0-3); URINE RBC 0-2 Rare /HPF (0-2); URINE WBC-REFLEX 6-15 Few /HPF (0-5)
[2019-06-10 17:50] LABS: TROPONIN-I 0.17 ng/mL (<0.06)
[2019-06-10 19:09] LABS: CHOLESTEROL 100 mg/dL (<200); HDL CHOLESTEROL 55 mg/dL (>40); LDL CHOLESTEROL 32 mg/dL (<100); TC:HDL 1.8 Ratio (Not establshd); TRIGLYCERIDE 65 mg/dL (<150); VLDL 13 mg/dL (<40)
[2019-06-10 19:34] LABS: TSH 9.125 uIU/mL (0.358-3.740)
[2019-06-10 19:56] VITALS: BP 108/55
[2019-06-10 20:01] VITALS: BP 118/54
[2019-06-11 00:39] VITALS: BP 132/57
[2019-06-11 03:26] VITALS: BP 116/55
[2019-06-11 06:03] LABS: ALBUMIN 3.1 g/dL (3.4-5.0); CALCIUM 8.2 mg/dL (8.5-10.1); CREATININE 2.6 mg/dL (0.7-1.3); PHOSPHORUS 3.9 mg/dL (2.5-4.9); POTASSIUM 4.7 mmol/L (3.5-5.1); TROPONIN-I 0.22 ng/mL (<0.06)
--- NOTE | 2019-06-11 07:41 | NUR ---
RECIEVED REPORT FROM [facility] ED RN.PATIENT ARRIVED TO ROOM 218 AROUND 2004 ACCOMPANIED BY HIS SIGNIFICANT OTHER.PATIENT ALERT,FORGETFUL,HARD OF HEARING.SKIN TEAR ON BILATERAL KNEES AND LEFT HUDDLESTON.DENIES CHEST PAIN.TROPONIN ELEVATED.CARDIOLOGY WAS CONSULTED.MONITOR SHOWS V PACED.POC CONTINUED.
[2019-06-11] MEDS ORDERED: MITIGARE0.6 MG PO (08:09)
--- NOTE | 2019-06-11 08:19 | EKG ---
[facility] [place] [address] ELECTROCARDIOGRAM REPORT Name: JENNY OTTO Room #: 218-P ADM IN M.R.#: [id number] Admission: 06/10/19 Attend Phys: Nitish Ortiz Discharge: Date of : 32 Report #: [id number] THIS REPORT FOR: cc: Hakan Amaral MD, Elliott L. MD Lundgren,Rj Brantley MD [facility] ~ THIS REPORT FOR: //name// [facility] ED Test Date: 2019-06-10 Test Time: 17:10:31 Pat Name: JENNY OTTO Department: Room: 218 Gender: M Licensed Home Inspector: NANDINI : 1930 Requested By: Anjel Elmore Order Number: [id number] MD: Rj Lovelace Measurements Intervals [place] Rate: 79 P: 61 AK: 223 QRS: -70 QRSD: 189 T: 108 QT: 479 QTc: 550 Interpretive Statements Atrial-sensed ventricular-paced complexes No further analysis attempted due to paced rhythm Compared to ECG 02/08/2018 20:36:28 No significant changes Electronically Signed On 06-11-2019 8:18:41 [employer] CARTOONIST by Rj Lovelace [email or web address] <ELECTRONICALLY SIGNED> By: Rj Lovelace MD, [facility] 06/11/19 0818 171 171 Rj Lovelace MD, [facility] /EPI
[2019-06-11 09:47] VITALS: BP 125/60
--- NOTE | 2019-06-11 10:51 | 2DMMODE ---
[facility] [address] [place] [address] 2 D/M-MODE ECHOCARDIOGRAM Name: JENNY OTTO Room #: 218-P ADM IN M.R.#: [id number] Admission: 06/10/19 Attend Phys: Nitish Ortiz Discharge: Date of : 32 Report #: [id number] THIS REPORT FOR: cc: Hakan Amaral MD, Elliott L. MD Lammoglia, Francisco J. MD ~ APPROVED REPORT Study performed: 06/11/2019 08:51:33 EXAM: Comprehensive 2D, Doppler, and color-flow Echocardiogram Patient Location: In-Patient Room #: 218 BSA: 2.09 HR: 70 bpm BP: 116/55 mmHg Other Information Study Quality: Excellent Indications Syncope Sycope Hx: CAD, PPM, HTN, DM 2D Dimensions RVDd: 40.57 mm IVSd: 21.10 (7-11mm) LVOT Diam: 18.69 (18-24mm) LVDd: 46.84 mm PWd: 18.82 (7-11mm) Ascending Ao: 29.67 (22-36mm) LVDs: 36.08 (25-40mm) Aortic Root: 32.53 mm IVC: 28.00 mm Volumes Left Atrial Volume (Systole) Single Plane 4CH: 80.16 mL Single Plane 2CH: 131.54 mL LA ESV Index: 54.00 mL/m2 Aortic Valve AoV Peak George.: 1.88 m/s AO Peak Gr.: 14.14 mmHg LVOT Max P.19 mmHg AO Mean Gr.: 7.63 mmHg LVOT Mean P.45 mmHg AO V2 Mean: 1.32 m/s LVOT Max V: 0.74 m/s AO V2 VTI: 34.74 cm LVOT Mean V: 0.58 m/s [facility] [place] [address] 2 D/M-MODE ECHOCARDIOGRAM Name: JENNY OTTO Room #: 218-P ADM IN M.R.#: [id number] Admission: 06/10/19 Attend Phys: Nitish Maxwell Discharge: Date of : 32 Report #: [id number] LAVON (VTI): 1.16 cm2 LVOT V1 VTI: 14.75 cm LAVON Vmax: 1.08 cm2 AI Vmax: 3.65 m/s SV (LVOT): 40.45 mL AI [place]: 3.47 m/s2 AI PHT: 305.04 ms Mitral Valve E/A Ratio: 2.7 MV Decel. Time: 119.38 ms MV E Max George.: 0.84 m/s MV A George.: 0.31 m/s MV PHT: 34.62 ms IVRT: 96.89 ms Pulmonary Valve PV Peak George.: 0.66 m/s PV Peak Gr.: 1.76 mmHg Pulmonary Vein P Vein S: 0.11 m/s P Vein A: 0.09 m/s P Vein D: 0.32 m/s P Vein A Dur.: 87.7 msec P Vein S/D Ratio: 0.34 Tricuspid Valve TR Peak George.: 3.38 m/s TR Peak Gr.: 45.68 mmHg PA Pressure: 61.00 mmHg Left Ventricle The left ventricle is normal size. Global hypokinesis of the left ventricle Moderate concentric left ventricular hypertrophy. Left ventricular systolic function is moderately decreased. LVEF is 35%. Grade IV - fixed restrictive diastolic dysfunction. Right Ventricle Right ventricle is at the upper limits of normal. Right ventricle is hypokinetic. Atria Left atrium is dilated. Right atrium is dilated. Aortic Valve Aortic valve leaflets are moderately thickened. Moderate aortic regurgitation. There is no aortic valvular stenosis. Mitral Valve The mitral valve is normal in structure. Mild to moderate mitral [facility] [address] [address] 2 D/M-MODE ECHOCARDIOGRAM Name: JENNY OTTO Room #: 218-P [facility] IN .R.#: [id number] Admission: 06/10/19 Attend Phys: Nitish Maxwell Discharge: Date of : 32 Report #: [id number] regurgitation. No evidence of mitral valve stenosis. Tricuspid Valve The tricuspid valve is normal in structure. Moderate tricuspid regurgitation. Right ventricular systolic pressure is estimated at 61 mmHg. Pulmonic Valve The pulmonary valve is normal in structure. Trace to mild pulmonic regurgitation. Great Vessels The aortic root is normal in size. IVC is dilated and collapses <50% with inspiration. Pericardium Trace pericardial effusion. There is no pleural effusion. <Conclusion> The left ventricle is normal size. Moderate concentric left ventricular hypertrophy. LVEF is 35%. Global hypokinesis of the left ventricle Right ventricle is at the upper limits of normal. Right ventricle is hypokinetic. Left atrium is dilated. Right atrium is dilated. Aortic valve leaflets are moderately thickened with decrease in excursion consistent with aortic stenosis. Visually severe. V-max underestimated due to left ventricular dysfunction Moderate aortic regurgitation. The mitral valve is normal in structure. Mild to moderate mitral regurgitation. The tricuspid valve is normal in structure. Moderate tricuspid regurgitation. Right ventricular systolic pressure is estimated at 61 mmHg. The pulmonary valve is normal in structure. Trace to mild pulmonic regurgitation. Trace pericardial effusion. <ELECTRONICALLY SIGNED> By: Harshil Westbrook MD 06/11/19 1050 49 [phone] Harshil Westbrook MD /INF
[2019-06-11 12:40] VITALS: BP 115/51
--- NOTE | 2019-06-11 15:20 | NUR ---
FAXED REFERRAL TO [facility] RECEIVED CONFIRMATION AND LEFT MSG WITH [facility] IN ADM THAT PT SHOULD BE READY FOR DC SOON. DP TO FOLLOW
[2019-06-11 16:32] VITALS: BP 120/62
--- NOTE | 2019-06-11 17:38 | NUR ---
met with patient and at bedside. reports she and patient live in independent home. All needs on one level. Uses walker or cane in home. reports she assists with bathing and she drives. Discussed post acute care. in agreement. Given [employer] list she is interested in [facility] for review. Dc senior program planner faxed referral. [facility] following.
--- NOTE | 2019-06-11 17:51 | NUR ---
ASSUMED CARE PT SHIFT CHANGE. ASSESSMENTS CHARTED. MEDS GIVEN PER JUN. PT ALERT AND ORIENTED X3. FORGETFUL AT TIMES. PT UP WITH PHYS THERAPY THIS SHIFT. TOLERATED FAIR. PT EXHIBITING TREMORS, CLAIMS THESE ARE NEW. PHYSICIAN NOTIFIED. NEURO CONSULTED. PT UP IN CHAIR DURING SHIFT. AT BEDSIDE THROUGHOUT SHIFT. PT CURRENTLY RESTING IN BED DENYING OF NEEDS AND CONCERNS. CONTINUING TO MONITOR.
[2019-06-11 20:10] VITALS: BP 136/63
[2019-06-12] VITALS (15 sets, daily range): BP systolic 108–141; BP diastolic 54–84
--- NOTE | 2019-06-12 06:05 | NUR ---
PT RESTING QUIETLY IN BED, VOIDING PER URINAL AND ALSO INCONT OF DRK KIMI URINE WITH CLOTS, C/O PAIN WHEN TURNED, DENIED NEED FOR PAIN MED, VSS, WILL CON'T TO MONITOR PER PPOC.
[2019-06-12 06:10] LABS: CALCIUM 8.5 mg/dL (8.5-10.1); CREATININE 2.5 mg/dL (0.7-1.3); POTASSIUM 4.6 mmol/L (3.5-5.1)
--- NOTE | 2019-06-12 14:51 | NUR ---
WOUND CONSULT; WOUNDS IDENTIFIED TO THE BILATERAL KNEES AND THE BILATERAL SHINS.ALL THE WOUNDS ARE TENDER RE; TRAUMA OF A FALL. THE RIGHT HUDDLESTON HAS A BLACK BLISTER THAT IS INTACT. THE LEFT HUDDLESTON IS APPROX. 6 X 6 X 0.1 CM. THE BILATEAL KNEE WOUNDS ARE APPROX 2 X 2 X 0.1 CM. NO S/S OF INFECTION. RECOMMEDNATIONS: 1-LEFT KNEE: XEROFORM/BORDER FOAM 2-RIGHT KNEE:XEROFORM/BORDER FOAM 3-LEFT HUDDLESTON: XEROFORM/BORDER FOAM 4-RIGHT HUDDLESTON: PAINT WITH BETADINE DISCUSSED WITH RN
--- NOTE | 2019-06-12 15:09 | NUR ---
[facility] is accepting they are working on auth with insurance. Updated .
--- NOTE | 2019-06-12 19:35 | NUR ---
ASSUMED CARE OF PT AT SHIFT CHANGE. ASSESSMENT CHARTED. MEDS GIVEN PER JUN. PT ALERT TO SELF AND PLACE, PLEASANT. WOUND CARE DRESSED WOUNDS ON BLE. URINE CONTINUES TO BE SLIGHTLY BLOOD TINGED. PLAN TO EVENTUALLY DISCHARGE TO [facility].
[2019-06-13 04:44] VITALS: BP 131/67
[2019-06-13 07:30] VITALS: BP 126/58
--- NOTE | 2019-06-13 10:39 | NUR ---
ASSUMED CARE OF PT AT SHIFT CHANGE. ALERT TO SELF/BDATE AND WITH PROMPTING KNEW PRESIDENT. CONFUSION REPORTED BY SPOUSE WORSENED. VERY CLOSE SBA FOR MOVEMENT. IS NOT IMPULSIVE THUS FAR. DISCOVERED IV LEAKING, WILL RE-START ANOTHER WHEN ABLE AMOUNGST DISCHARGES/ADMITS/TRANSFERS. ALSO JUST DISCOVERED HE WILL BE TRANSFERRED TO [facility] SOON I'M ABLE. ENCOURAGED BOTH PT AND SPOUSE TO USE CALL LIGHT FOR ANY NEEDS
[2019-06-13 12:16] LABS: CALCIUM 9.1 mg/dL (8.5-10.1); CREATININE 2.5 mg/dL (0.7-1.3); POTASSIUM 4.9 mmol/L (3.5-5.1)
[2019-06-13 12:25] VITALS: BP 124/57
--- NOTE | 2019-06-13 12:46 | NUR ---
Case discussed with the care team and the attending. DC planned for tomorrow to SNF at [facility]. [facility] needing updates today and will continue to work on getting the ins auth in place for tomorrow. Pt's at bedside this am and aware of the dc plan. Will follow.
--- NOTE | 2019-06-13 15:52 | NUR ---
FAXED TODAY'S THERAPY NOTES AND PROGRESS NOTES TO [facility] SPOKE WITH ERIC IN ADM SHE RECEIVED UPDATE.
[2019-06-13 16:35] VITALS: BP 118/52
--- NOTE | 2019-06-13 17:06 | NUR ---
PT CARE ASSUMED AT 1400. ALERT AND ORIENTED TO SELF AND TIME. WOUND DRESSING CHANGED ON SKIMMED KNEES. AT BED SITE. ACHS. PT IS HARD OF HEARING. HAS A [ACEMAKER. ON FLUID RESTRICTIONS. ON ROOM AIR. PT USES URINAL WITH SOME INCONTINENCE. FALL PROTOCOLL IN PLACE. CALL LIGHT WITHIN REACH.
[2019-06-13 19:45] VITALS: BP 120/51
--- NOTE | 2019-06-14 03:49 | NUR ---
ASSUMED PT CAREA AT 1899.PT WAS MOANING WHEN THIS NURSE WENT TO PT'S ROOM FOR ROUNDS AFTER REPORT.PT RECEIVED PAIN MED AND ALL HIS HS MEDS.PT REPOITIONED WHILE IN BED.PT INCONT,JILLIAN CARE WITH EACH INCONT.PT ALERT/FORGETFUL AND CONFUSED.PT RESTING ON HIS BED AT THIS TIME.FALL PRECAUTIONS IN PLACE,CALL LIGHT WITHIN REACH.
[2019-06-14 04:37] VITALS: BP 130/63
[2019-06-14 06:52] LABS: ALBUMIN 3.1 g/dL (3.4-5.0); CALCIUM 8.7 mg/dL (8.5-10.1); CREATININE 2.5 mg/dL (0.7-1.3); POTASSIUM 4.8 mmol/L (3.5-5.1)
[2019-06-14 07:16] VITALS: BP 119/50
[2019-06-14] MEDS ORDERED: SYNTHROID75 MCG PO (08:24)
--- NOTE | 2019-06-14 10:45 | NUR ---
WOUND CARE F/U ASSESSED WOUNDS W/ KNOWLEDGE MANAGEMENT ADVISOR, SKIN TEARS BILAT KNEES AND L HUDDLESTON, HEALING, NO S/S INFECTION, SCANT DRAINAGE, WOUND BASE BEEFY RED VIABLE TISSUE, SLOUGH GONE FROM L HUDDLESTON WOUND, R HUDDLESTON WOUND DRY, NO DRAINAGE, COOPERATIVE, TOLERATED WELL,PHOTOS TAKEN, SEE PROCESS INTERVENTION FOR WOUND DETAILS RECOMMENDATIONS CONT WOUND CARE 3XWEEK W/ XEROFORM GAUZE, BORDER FOAM, TO BILAT KNEES AND L HUDDLESTON, R HUDDLESTON PAINT W/ BETADINE 3X WEEK, KNOWLEDGE MANAGEMENT ADVISOR AWARE
--- NOTE | 2019-06-14 13:59 | NUR ---
PT DISCHARGING TODAY TO [facility] FAXED DC ORDERS/SUMMARY TO FACILITY SPOKE WITH AME IN ADM SHE RECEIVED ORDERS AND ARRANGED TRANSPORT FOR [phone] TODAY. NOTIFIED PT'S S/O HETAL OF DC AND TIME OF TRANSPORT UNIT NOTIFIED AND CHART COPY PER US. RN TO CALL REPORT TO [phone].
--- NOTE | 2019-06-14 14:44 | NUR ---
INSURANCE AUTH WAS REVIEVED FOR PT TO GO TO [facility] THIS DAY. CHART COPY ORDRED. ORDERS TO BE FAXED. NURSE CALLED REPORT. TRANSPORT ARRANGED BETWEEN [phone]. PT AND SIG OTHER AWARE AND AGREEABLE. [id number] COMPLETED AND PLACED IN CHART COPY. NO OTHER CM INTERVENTION INDICATED. CASE CLOSED.
--- NOTE | 2019-06-14 15:41 | NUR ---
Assumed care of pt at 0700. Pt confused but follows commands. Incontinent b&b. Q2h turn. Wound dressing changed by wound care nurse. Discharge pictures in the chart. Denies pain. Family at bedside. Pt discharged to rehab facility. Family aware.
== END 2019-06-14 15:23 | DRG 73 ==
LOC: ER 15:47 → EROBS 18:46 → 2N 18:46 → ENTRNSPT 06-13 11:38 → EDTRNSPTSTS 06-13 11:40 → 4S 06-13 11:56
PROVIDERS: Emergency Medicine; Nurse Practitioner; ADMIT Hospitalist
DX: G90.8 Other disorders of autonomic nervous system (principal); N17.0 Acute kidney failure with tubular necrosis; G93.41 Metabolic encephalopathy; N39.0 Urinary tract infection, site not specified; N18.4 Chronic kidney disease, stage 4 (severe); I50.42 Chronic combined systolic (congestive) and diastolic (congestive) heart failure; I13.0 Hypertensive heart and chronic kidney disease with heart failure and stage 1 through stage 4 chronic kidney disease, or unspecified chronic kidney disease; K21.9 Gastro-esophageal reflux disease without esophagitis; I25.10 Atherosclerotic heart disease of native coronary artery without angina pectoris; E11.22 Type 2 diabetes mellitus with diabetic chronic kidney disease; E78.5 Hyperlipidemia, unspecified; E78.00 Pure hypercholesterolemia, unspecified; E03.9 Hypothyroidism, unspecified; R25.1 Tremor, unspecified; B96.1 Klebsiella pneumoniae [K. pneumoniae] as the cause of diseases classified elsewhere; Z90.49 Acquired absence of other specified parts of digestive tract; Z95.0 Presence of cardiac pacemaker; Z95.5 Presence of coronary angioplasty implant and graft; Z86.73 Personal history of transient ischemic attack (TIA), and cerebral infarction without residual deficits; Z88.1 Allergy status to other antibiotic agents; Z79.899 Other long term (current) drug therapy
CPT/HCPCS: 10081; 10102